=== PATIENT | female | born 1985 | race Caucasian/White ===

== ENCOUNTER → 2025-10-23 17:15 | Observation (INO) ==
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
[2025-10-22] MEDS: ACETAMINOPHEN 325 MG TAB PO PRN (22:46)
[2025-10-23] MEDS: LEVOTHYROXINE SODIUM 88 MCG TABLET PO SCH ×2 (04:43→07:38)
[2025-10-23] MEDS: MAGNESIUM OXIDE 400 MG TAB PO SCH (07:36)
--- NOTE | 2025-10-23 07:37 | Obstetrical Progress Note ---
Date of Service October 23, 2025 Assessment & Plan Admission and Anticipated Discharge Date Admission Date: October 22, 2025 Subjective Doing well overnight. FHT remains cat 1. Reactive NST. [place] flat. Abdomen soft, nontender to palpation and displacement. Ambulating, eating ok. Will monitor until 5pm, then ok for DC home if remains Cat 1. Followup in office as scheduled. Results & Data Vital Signs (Past 12 Hours) Vital Signs Temp Pulse Resp BP 10/23/25 07:17 91 H 107/64 10/23/25 04:23 75 110/61 10/23/25 04:22 36.6 C 10/22/25 22:42 36.8 C 82 16 117/66 PG Care Time/CCT Total # of Minutes Spent Total Time Spent with Patient: Total time spent is greater than 50% in coordination of care (as documented) at patient's floor/unit and/or counseling patient: Coding Level of Care Code None
[2025-10-23 08:42] VITALS: RESP 20
[2025-10-23 11:55] VITALS: BP 114/73; PULSE 77
[2025-10-23] MEDS: ACETAMINOPHEN 500 MG TAB PO PRN (12:36)
[2025-10-23 17:41] VITALS: TEMP 98.2
--- NOTE | 2025-10-26 11:04 | Discharge Summary ---
Date of Service October 26, 2025 Admission HPI Per Admitting Provider 40yo @ 38 [birth year], came to ER after falling down a flight of steps. She states she was carrying multiple items and tripped, fell down approximately 12 steps. Hit her left side, hit her head. Did not lose consciousness. Does not think she hit her abdomen. Not feeling much movement, not sure if this is normal for this time of day or not. No abdominal pain. No vaginal bleeding. Has been feeling small runs of contractions at this point in , lasting approx 20 min or so, but this has been ongoing since before the fall. complicated by advanced maternal age, hypothyroidism, h/o LEEP p rocedure x 2, fibroid uterus. She is Rh positive. After being seen in ER and imaging negative, referred to L&D for continued monitoring. Hospital Course (1) Trauma during : Patient fell down a flight of steps - therefore will monitor heart rate for 24h. Patient is agreeable with the plan. Will allow to eat after the first 4 hours of monitoring if Cat 1 FHT. Tylenol/ice for pain. OK for ambulation. Coding Level of Care Code None Diagnoses Trauma during O9A.219
== END | disposition home or self-care (01) ==
LOC: 4S1